=== PATIENT | male | born 1950 | race Caucasian/White ===

== ENCOUNTER → 2024-08-29 | Outpatient (BNVA) | payer MEDICARE, BC, SELFPAY | END | disposition home or self-care (01) | PROVIDERS: PCP Family Medicine; Referring Provider Family Medicine; Visit Provider Student in an Organized Health Care Education/Training Program | DX: N52.9 Male erectile dysfunction, unspecified (principal); I10 Essential (primary) hypertension; E78.00 Pure hypercholesterolemia, unspecified; Z86.73 Personal history of transient ischemic attack (TIA), and cerebral infarction without residual deficits | CPT/HCPCS: 99212; G0463 ==

== ENCOUNTER → 2024-11-08 | Outpatient (BNVA) | payer MEDICARE, BC, SELFPAY | END | disposition home or self-care (01) | PROVIDERS: PCP Family Medicine; Referring Provider Family Medicine; Visit Provider Urology | DX: N40.1 Benign prostatic hyperplasia with lower urinary tract symptoms (principal); N13.8 Other obstructive and reflux uropathy; Z80.42 Family history of malignant neoplasm of prostate; Z86.73 Personal history of transient ischemic attack (TIA), and cerebral infarction without residual deficits; E66.9 Obesity, unspecified; Z68.28 Body mass index [BMI] 28.0-28.9, adult; I10 Essential (primary) hypertension; E78.00 Pure hypercholesterolemia, unspecified; H91.93 Unspecified hearing loss, bilateral | CPT/HCPCS: 81003; 99213; G0463 ==

== ENCOUNTER → 2024-11-08 | Outpatient (CLI) | payer MEDICARE, BC, SELFPAY ==
[2024-11-08 11:18] LABS: Basophils # (Auto) 0.1 Thou/mm3 (0.0-0.2); Basophils % (Auto) 1 % (0-2.5); Eosinophils # (Auto) 0.0 Thou/mm3 (0.0-0.5); Eosinophils % (Auto) 1 % (0-10); Hematocrit 50.3 % (41.0-53.0); Hemoglobin 16.2 g/dL (13.5-16.0); Immature Granulocytes Auto 0.02 Thou/mm3 (0.00-0.00); Lymphocytes # (Auto) 1.6 Thou/mm3 (1.0-4.8); Lymphocytes % (Auto) 25 % (10-50); Mean Corpuscular HGB Conc 32.2 g/dl (31.0-37.0); Mean Corpuscular Hemoglobin 28.9 pg (25.0-35.0); Mean Corpuscular Volume 90 fL (80-100); Monocytes # (Auto) 0.5 Thou/mm3 (0.0-0.8); Monocytes % (Auto) 8 % (0-12); Neutrophils # (Auto) 4.1 Thou/mm3 (1.8-7.7); Neutrophils % (Auto) 65 % (37-80); Nucleated Red Blood Cell # 0.00 Thou/mm3 (0.00-0.00); Nucleated Red Blood Cell % 0 /100 WBC (0); Platelet Count 235 Thou/mm3 (140-440); RDW Standard Deviation 52.2 fL (35.1-43.9); Red Blood Count 5.61 Miln/mm3 (4.50-5.90); White Blood Count 6.4 Thou/mm3 (3.8-10.6)
[2024-11-08 11:29] LABS: Alanine Aminotransferase 22 U/L (10-49); Albumin, Serum 4.8 gm/dL (3.4-4.8); Albumin/Globulin Ratio 2.1 (1.2-2.2); Alkaline Phosphatase 86 U/L (46-116); Anion Gap 7 (7-16); Aspartate Amino Transferase 21 U/L (0-34); BUN/Creatinine Ratio 19 Ratio (12-20); Bilirubin,Total 0.9 mg/dL (0.3-1.2); Blood Urea Nitrogen 19 mg/dL (9-23); Calcium 9.5 mg/dL (8.3-10.6); Calcium (Corrected) 9.5 mg/dL (8.5-10.1); Carbon Dioxide 29.5 mMol/L (20.0-31.0); Chloride 105 mMol/L (98-107); Creatinine (Component) 1.0 mg/dL (0.6-1.3); Globulin 2.3 gm/dL (2.3-3.5); Glucose 106 mg/dL (74-106); Osmolality,Calculated 283 (275-295); Potassium 4.0 mMol/L (3.4-5.1); Prostate Specific Antigen 0.95 ng/mL (0-4.00); Sodium 141 mMol/L (136-145); Total Protein 7.1 gm/dL (5.7-8.2); eGFR > 60 See Note
[2024-11-14 06:29] LABS: Testosterone, Free,Dialysis 323.0 pg/mL (30.0-135.0); Testosterone, Total, Dialysis 1145 ng/dL (250-1100)
== END | disposition home or self-care (01) ==
LOC: COPL 10:21
PROVIDERS: PCP Family Medicine; Referring Provider Urology; Visit Provider Urology
DX: R97.20 Elevated prostate specific antigen [PSA] (principal); E29.8 Other testicular dysfunction
CPT/HCPCS: 36415; 80053; 84153; 84402; 84403; 85025

== ENCOUNTER 2024-12-24 08:32 | Emergency (ER) | payer MEDICARE, BC, SELFPAY ==
[2024-12-24 08:39] VITALS: PULSE 92; O2SAT 99; BMI 29.5
[2024-12-24 09:00] VITALS: BP 153/89; PULSE 110; RESP 18; TEMP 37.1; O2SAT 96
--- NOTE | 2024-12-24 09:01 | EKG_ITS ---
[facility] Test Date: 2024-12-24 Pat Name: NOLVIA CORMIER Department: Room: - Gender: Male Title Attorney: : 1950 Requested By: Main Reeves Order Number: [id number] Reading MD: Main Reeves Measurements Intervals [place] Rate: 115 P: 49 VT: 136 QRS: 249 QRSD: 97 T: 48 QT: 315 QTc: 437 Interpretive Statements SINUS TACHYCARDIA PATTERN CONSISTENT WITH PULMONARY DISEASE POSSIBLE RIGHT VENTRICULAR HYPERTROPHY [SOME/ALL OF: PROMINENT R IN V1, LATE TRANSITION, RAD, DI, SSS] Compared to ECG 05/11/2021 09:02:11 Ectopic atrial rhythm no longer present Indeterminate axis no longer present Incomplete right bundle-branch block no longer present /store/S0/[id number]/[id number].pdf
[2024-12-24] MEDS: CLINDAMYCIN PHOS INJ 150 MG/ML VIAL 6 ML 600 MG IM (09:20)
[2024-12-24] MEDS: KETOROLAC INJ 60 MG/2 ML VIAL 30 MG IM (09:23)
--- NOTE | 2024-12-24 09:26 | EDNOTE_ITS ---
<Statement entered by Oksana Bolton MD - 01/05/25 11:17> As co-signing physician, I was present and available for consult prn. I concur with the plan and care as documented by the midlevel provider. ED Ear RME/HPI General Chief complaint: Ear Stated complaint: TOOTHACHE, EAR PAIN Time Seen by Provider: 12/24/24 08:41 Source: patient Arrival date/time: 12/24/24 08:32 74-year-old male with no known medical history presents to the emergency room with a chief complaint of right-sided ear pain and jaw pain x 2 days Mode of arrival: ambulatory Limitations: no limitations Related Data Home Medications ?Medication ?Instructions ?Recorded ?Confirmed alprazolam 0.5 mg tablet 0.5 mg PO QDAY PRN Anxiety 0 09/17/20 11/08/24 Held on 08/03/23. Instructions: Resume on 08/04/23. MAY RESUME IN 24 HOURS gabapentin 300 mg capsule 300 mg PO BID 09/17/2011/08 Held on 08/03/23. Instructions: Resume on 08/04/23. MAY RESUME IN 24 HOURS zolpidem 12.5 mg tablet,extended 12.5 mg PO QHSPRN PRN Insomnia 09/17/20 08/29/24 release,multiphase Held on 08/03/23. Instructions: Resume on 08/04/23. MAY RESUME IN 24 HOURS amlodipine 5 mg tablet 5 mg PO QDAY 03/06/21 budesonide 9 mg capsule,extended 9 mg PO QAM 03/06/21 11/08/24 release omeprazole 20 mg capsule,delayed 20 mg PO QDAY 1 11/08/24 release hydrocodone 7.5 mg-acetaminophen 1 tab PO BID PRN 10/2311/08/24 325 mg tablet Previous Rx's ?Medication ?Instructions ?Recorded atorvastatin 80 mg tablet 80 mg PO QPM #30 tabs clindamycin HCl 300 mg capsule 300 mg PO TID 7 days #2 1 caps 12/24/24 ofloxacin 0.3 % ear drops 5 drp otic (ear) QDAY 7 days #5 mL 12/24/24 Allergies Allergy/AdvReac Type Severity Reaction Status Date / Time cephalexin (From flex) Allergy Hives Verified 12/24/24 08:42 Review of Systems Review of Systems Systems Reviewed: All systems reviewed, normal except as documented Constitutional Constitutional: Reports system reviewed and no additional complaints, except as documented, Denies fatigue, Denies fever(s), Denies headache(s) and Denies weakness Eyes Eyes: Reports system reviewed and no additional complaints, except as documented, Denies blurry vision and Denies change in vision ENT Ears, Nose, Mouth, and Throat: Reports system reviewed and no additional complaints, except as documented, Reports otalgia, Denies headache(s), Denies nasal congestion, Denies throat swelling and Denies vertigo Cardiovascular Cardiovascular: Reports system reviewed and no additional complaints, except as documented, Denies chest pain, Denies dyspnea and Denies dyspnea on exertion Respiratory Respiratory: Reports system reviewed and no additional complaints, except as documented, Denies chest congestion, Denies cough, Denies dyspnea, Denies dyspnea on exertion and Denies wheezing Gastrointestinal Gastrointestinal: Reports system reviewed and no additional complaints, except as documented, Denies abdominal pain, Denies cramping, Denies nausea and Denies vomiting Genitourinary Genitourinary: Reports system reviewed and no additional complaints, except as documented, Denies dysuria and Denies hematuria Musculoskeletal Musculoskeletal: Reports system reviewed and no additional complaints, except as documented and Denies back pain Integumentary/Breasts Skin/Breast: Reports system reviewed and no additional complaints, except as documented and Denies wounds Neurologic Neurologic: Reports system reviewed and no additional complaints, except as documented, Denies confusion, Denies headache(s), Denies lack of coordination, Denies vertigo and Denies weakness Psychiatric Psychiatric: Reports system reviewed and no additional complaints, except as documented, Denies anxiety, Denies confusion, Denies depression, Denies paranoia, Denies suicidal ideation and Denies tactile hallucinations Endocrine Endocrine: Reports system reviewed and no additional complaints, except as documented and Denies fatigue Hematologic/Lymphatic Hematologic/Lymphatic: Reports system reviewed and no additional complaints, except as documented and Denies lymphadenopathy Allergic/Immunologic Allergic/Immunologic: Reports system reviewed and no additional complaints, except as documented, Denies throat swelling, Denies urticaria and Denies wheezing Past Medical History Past Medical History NEUROLOGIC: Positive Neurological Disorders and Cerebrovascular Accident (MILD 2 YEWARS AGO. MILD NUMBNESS TO RIGHT SIDE); Negative Seizures CARDIAC: Positive Cardiac Disorders, Hypercholesterolemia and Hypertension; Negative Congestive Heart Failure RESPIRATORY: Negative Chronic Obstructive Pulmonary Disease (COPD) GASTROINTESTINAL: Positive Gastrointestinal Disorders (ABDOMINAL PAIN) GENITOURINARY: Negative Genitourinary Disorders or Renal Disease MUSCULOSKELETAL: Positive Musculoskeletal Disorders ENT: Positive Deafness ([place]) ENDOCRINE: Negative Endocrine Disorders, Diabetes Mellitus Type 1 or Diabetes Mellitus Type 2 HEMATOLOGIC: Negative Blood Disorders PSYCHO/SOCIAL: Positive Depression and Anxiety OTHER HISTORY: Negative Autoimmune Disease, Falls, Blood Transfusions, Blood Transfusion Reaction, Anesthesia Reactions, MRSA or Cancer Family History FAMILY HISTORY: Positive Family Cardiac Disorders (dad) and Family Cancer (mom uterine CA); Negative Family Respiratory Disorders, Family Gastrointestinal Problems, Family Surgery or Family Anesthesia Reaction Surgical History SURGICAL: Positive Eye Surgery (2020, WART REMOVED); Negative Neurologic Surgery Social History SMOKING STATUS: Never smoker ED Exam General Limitations: Present no limitations General appearance: Present alert and in no apparent distress Head Head exam: Present atraumatic Eye Eye exam: Present normal appearance, PERRL and EOMI ENT ENT exam: Present normal exam, normal oropharynx and mucous membranes moist Expanded ENT Exam TM/Canal exam: Right TM: erythema, bulging and canal tenderness Neck Neck exam: Present normal inspection, full ROM and trachea midline Chest Chest inspection: Present normal inspection and symmetric chest wall rise Respiratory Respiratory exam: Present normal lung sounds bilaterally Cardiovascular Cardiovascular exam: Present regular rate, normal rhythm and normal heart sounds Abdominal Exam Abdominal exam: Present soft and normal bowel sounds Extremities Exam Extremities exam: Present normal inspection and full ROM Back Exam Back exam: Present normal inspection and full ROM Neurological Exam Neurological exam: Present alert, oriented X3 and CN II-XII intact Psychiatric Psychiatric exam: Present normal affect and normal mood Skin Skin exam: Present warm, dry, intact and normal color Course Quality Measures none Orders Category Date Time Status EKG (ED ONLY) *Do not use* NOW Care 12/24/24 09:01 Completed EKG (ED Only) Stat Exams 12/24/24 09:01 Draft Clindamycin Vial [Cleocin vial] Med 12/24/24 08:59 Discontinued 600 mg IM X1 ONE Ketorolac Inj [Toradol Inj] Med 12/24/24 08:59 Discontinued 30 mg IM X1 ONE Vital Signs Vital signs: Vital Signs Temperature 98.7 F 12/24/24 09:00 Pulse Rate 110 H 12/24/24 09:00 Respiratory Rate 18 12/24/24 09:00 Blood Pressure 153/89 H 12/24/24 09:00 Pulse Oximetry (%) 96 12/24/24 09:00 Oxygen Delivery Method Room Air 12/24/24 09:00 O2 saturation 96% within normal limits Ear MDM Narrative MDM Narrative:: 74-year-old male with no known medical history presents to the emergency room with a chief complaint of right-sided ear pain and jaw pain x 2 days Patient is hemodynamically stable and in no apparent distress Physical examination shows an erythemic bulging right-sided tympanic membrane. The findings are consistent with otitis media. Shot of antibiotics and oral antibiotics are sent to the patient's pharmacy Patient was discharged and educated to follow-up with primary care provider in the next 24 to 48 hours and return to the emergency room for any evidence of worsening signs or symptoms Patient data External records reviewed:: [facility] previous records Clinical information provided by:: patient Social determinants that could affect healthcare access:: none Patient has the following chronic illnesses:: No chronic illness How is presenting disease/condition affected by chronic disease/condition?: no chronic disease Evaluation data The following diagnostics were reviewed and interpreted by me:: lab results and radiology exam(s) Lab and/or radiology exams considered but not ordered:: Labs and radiology exams considered and ordered Interpretation Summary: N/A Medications / Prescriptions Medications or Prescriptions considered but not ordered:: Medication given Medication administrations:: Medication Administration History Discontinued Medications Clindamycin Phosphate (Clindamycin Phos Inj 150 Mg/Ml Vial 6 Ml) 600 mg IM X1 ONE Stop: 12/24/24 09:00 Last Admin: 12/24/24 09:20 Dose: 600 mg Documented By: OA Ketorolac Tromethamine (Ketorolac Inj 60 Mg/2 Ml Vial) 30 mg IM X1 ONE Stop: 12/24/24 09:00 Last Admin: 12/24/24 09:23 Dose: 30 mg Documented By: OA Medication given Consultations Consultation(s) initiated? (list below): No Diagnosis Ear Differential Diagnosis: otitis externa, otitis media, foreign body in ear and ruptured TM Most likely diagnosis given after review of the tests above:: Otitis media Admission Indicated Admission indicated?: not indicated Admission Request Was there a request for admission?: No Disposition Plan Disposition Plan: Discharge Discharge Attestation Discharge Attestation: The patient and all family members were given an opportunity to ask questions and understood the discharge instructions. Discharge instructions specifically effects, indications for sooner follow up or return to the emergency department, and the expected course of current diagnosis. Patient condition: Stable Discharge Plan Plan Patient Disposition: HOME (Self Care) Discharge Disposition comment: Stable Prescriptions/Referrals Prescriptions/Med Rec: New clindamycin HCl 300 mg capsule 300 mg PO TID 7 Days Qty: 21 0RF ofloxacin 0.3 % drops 5 drp otic (ear) QDAY 7 Days Qty: 5 0RF No Action hydrocodone-acetaminophen 7.5-325 mg tablet 1 tab PO BID PRN alprazolam 0.5 mg Tablet 0.5 mg PO QDAY PRN (Reason: Anxiety) gabapentin 300 mg Capsule 300 mg PO BID Patient Comments: pt states he takes 600mg at night because it makes him drowsy zolpidem 12.5 mg Tablet,Ext Release Multiphase 12.5 mg PO QHSPRN PRN (Reason: Insomnia) amlodipine 5 mg Tablet 5 mg PO QDAY omeprazole 20 mg Capsule,Delayed Release(Dr/Ec) 20 mg PO QDAY budesonide 9 mg Capsule, Extended Release 9 mg PO QAM atorvastatin 80 mg tablet 80 mg PO QPM Qty: 30 0RF Problem List Clinical Impression: Otitis media Patient/Caregiver Discharge Instructions Education Materials: ED Otitis Media Antibiotic ... Additional Instructions: Please follow-up with your primary care provider in the next 24 to 48 hours Antibiotics are sent to your pharmacy please pick them up and take them as indicated For any evidence of worsening signs or symptoms return to the emergency room immediately Print Language: Turkmen Stand Alone Forms: [employer] Award Info., Patient Portal Info Letter PA/JACINTO Supervising Physician PA/JACINTO Supervising Physician: Dr. BOLTON
== END 2024-12-24 09:49 | disposition home or self-care (01) ==
LOC: SERX 09:42
PROVIDERS: Emergency Provider Emergency Medicine; PCP Family Medicine
DX: H66.91 Otitis media, unspecified, right ear (principal); R00.0 Tachycardia, unspecified; I10 Essential (primary) hypertension; E78.00 Pure hypercholesterolemia, unspecified
CPT/HCPCS: 93005; 96372; 99283; J0736; J1885

== ENCOUNTER → 2025-01-21 | Outpatient (CLI) | payer MEDICARE, BC, SELFPAY ==
[2025-01-21 11:39] LABS: Misc Send Out* See Sep Rpt
[2025-01-21 12:16] LABS: Basophils # (Auto) 0.0 Thou/mm3 (0.0-0.2); Basophils % (Auto) 0 % (0-2.5); Eosinophils # (Auto) 0.0 Thou/mm3 (0.0-0.5); Eosinophils % (Auto) 0 % (0-10); Hematocrit 51.2 % (41.0-53.0); Hemoglobin 17.4 g/dL (13.5-16.0); Immature Granulocytes Auto 0.02 Thou/mm3 (0.00-0.00); Lymphocytes # (Auto) 1.6 Thou/mm3 (1.0-4.8); Lymphocytes % (Auto) 18 % (10-50); Mean Corpuscular HGB Conc 34.0 g/dl (31.0-37.0); Mean Corpuscular Hemoglobin 29.9 pg (25.0-35.0); Mean Corpuscular Volume 88 fL (80-100); Monocytes # (Auto) 0.7 Thou/mm3 (0.0-0.8); Monocytes % (Auto) 8 % (0-12); Neutrophils # (Auto) 6.6 Thou/mm3 (1.8-7.7); Neutrophils % (Auto) 73 % (37-80); Nucleated Red Blood Cell # 0.00 Thou/mm3 (0.00-0.00); Nucleated Red Blood Cell % 0 /100 WBC (0); Platelet Count 118 Thou/mm3 (140-440); RDW Standard Deviation 51.3 fL (35.1-43.9); Red Blood Count 5.81 Miln/mm3 (4.50-5.90); White Blood Count 9.0 Thou/mm3 (3.8-10.6)
[2025-01-21 12:41] LABS: Ferritin 32 ng/mL (10.5-307.3)
[2025-01-28 07:16] LABS: Erythropoietin (EPO)* 17.3 mIU/mL (2.6-18.5)
== END | disposition home or self-care (01) ==
LOC: COPL 11:17
PROVIDERS: PCP Family Medicine
DX: D75.1 Secondary polycythemia (principal)
CPT/HCPCS: 36415; 82668; 82728; 85025

== ENCOUNTER → 2025-02-08 | Outpatient (CLI) | payer MEDICARE, BC, SELFPAY ==
[2025-02-08 13:14] LABS: Collection Type, Urine Clean Catch
[2025-02-08 15:42] LABS: Bacteria,Urine Rare; Bilirubin,Urine Negative (Negative); Blood,Urine Negative (Negative); Clarity,Urine Clear (Clear/Hazy); Color,Urine Yellow (Lt Yel-Yel); Culture Indicated,Urine Not Indicated; Glucose, Urine Negative (Negative); Ketones,Urine Negative (Negative); Leukocyte Esterase,Urine Negative (Negative); Nitrite,Urine Negative (Negative); PH,Urine 5.5 (5.0-7.0); Protein,Urine Negative (Neg - Trace); RBC,Urine 2 /hpf (0-3); Specific Gravity,Urine 1.030 (1.001-1.035); Squamous Epithelial Cell,Urine 1 /hpf (0-5); Urobilinogen,Urine Negative mg/dL (0.0-1.0); WBC,Urine 1 /hpf (0-5)
== END | disposition home or self-care (01) ==
LOC: SLDO 13:11
PROVIDERS: Referring Provider Internal Medicine; Visit Provider Internal Medicine
DX: D41.4 Neoplasm of uncertain behavior of bladder (principal)
CPT/HCPCS: 81001

== ENCOUNTER 2025-03-18 08:45 | Day surgery (SDC) | payer MEDICARE, BC, SELFPAY ==
[2025-03-18 09:17] VITALS: BP 143/98; PULSE 99; RESP 16; TEMP 36.4; O2SAT 94; BMI 27.1
[2025-03-18] MEDS: RINGERS LACTATED 500 ML 500 ML 20 ML IV (10:50)
[2025-03-18 11:26] VITALS: BP 122/79; PULSE 84; RESP 12; TEMP 36.6; O2SAT 97
[2025-03-18 11:36] VITALS: BP 130/84; PULSE 81; RESP 14; O2SAT 97
[2025-03-18 11:46] VITALS: BP 131/86; PULSE 86; RESP 12; O2SAT 97
[2025-03-18 11:56] VITALS: BP 140/75; PULSE 86; RESP 13; TEMP 36.6; O2SAT 97
--- NOTE | 2025-03-18 12:34 | SUR.PHASEII ---
1155 Pt more awake and alert. Denies pain or N/V. Abd remains soft. Ariela PO fluids. 1215 Pt assessment unchanged. No complaints. Amb with steady gait. Able to dress self. Pt and given DC instructions by [email or web address]. Pt meets dc criteria-to home.
== END 2025-03-18 12:15 | disposition home or self-care (01) ==
PROVIDERS: PCP Family Medicine; Referring Provider Specialist; Visit Provider Specialist
PROC: 0DBE8ZX Excision of Large Intestine, Via Natural or Artificial Opening Endoscopic, Diagnostic (ICD-10-PCS; CPT 45380; principal; 2025-03-18 09:45)
DX: D12.0 Benign neoplasm of cecum (principal); D12.2 Benign neoplasm of ascending colon; D12.4 Benign neoplasm of descending colon; K63.89 Other specified diseases of intestine; K62.89 Other specified diseases of anus and rectum; K64.1 Second degree hemorrhoids; F41.1 Generalized anxiety disorder; E78.5 Hyperlipidemia, unspecified; R61 Generalized hyperhidrosis
CPT/HCPCS: 45385; 45380; 80053; A4649; J7120